=== PATIENT | male | born 1960 | race African-American/Black ===

== ENCOUNTER 2017-12-08 04:13 | Emergency (ER) | payer OTHER ==
[~2017-12-08] VITALS: Ht 177.8 cm; Wt 95.0 kg
[2017-12-08] MEDS ORDERED: OXYCODONE HCL/ACETAMINOPHEN 5/325MG TABLET PO ONE (07:15)
[2017-12-08 08:55] VITALS: BP 142/76
== END 2017-12-08 09:16 | disposition home or self-care (01) ==
LOC: ER 04:35
DX: S02.2XXA Fracture of nasal bones, initial encounter for closed fracture (principal); S83.91XA Sprain of unspecified site of right knee, initial encounter; I12.9 Hypertensive chronic kidney disease with stage 1 through stage 4 chronic kidney disease, or unspecified chronic kidney disease; N18.9 Chronic kidney disease, unspecified; Z88.8 Allergy status to other drugs, medicaments and biological substances; Y04.0XXA Assault by unarmed brawl or fight, initial encounter; Y93.89 Activity, other specified; Y92.89 Other specified places as the place of occurrence of the external cause
CPT/HCPCS: 70450; 70486; 73562; 99284